=== PATIENT | female | born 1990 | race Caucasian/White ===

== ENCOUNTER 2020-12-20 23:30 | Emergency (ER) | payer MEDICAID ==
[~2020-12-20] VITALS: Ht 162.6 cm; Wt 68.0 kg
[2020-12-21] MEDS ORDERED: IBUPROFEN 600MG TABLET PO ONE (01:45)
[2020-12-21] MEDS ORDERED: IBUP-2028 MT (01:47)
[2020-12-21 02:30] VITALS: BP 126/69
== END 2020-12-21 02:32 | disposition home or self-care (01) ==
LOC: ER 23:45
DX: S40.012A Contusion of left shoulder, initial encounter (principal); S20.212A Contusion of left front wall of thorax, initial encounter; M25.512 Pain in left shoulder; R07.81 Pleurodynia; V98.8XXA Other specified transport accidents, initial encounter; Y93.89 Activity, other specified; Y92.89 Other specified places as the place of occurrence of the external cause; Y99.8 Other external cause status
CPT/HCPCS: 71045; 73030; 99284